=== PATIENT | female | born 1945 | race African-American/Black ===

== ENCOUNTER → 2019-01-11 | Outpatient (CLI) | payer OTHER ==
[~2019-01-11] VITALS: Ht 149.9 cm; Wt 91.2 kg
[~2019-01-11] MED LIST: ACTOS 45 MG45 M1 PO; AGGRENOX 25 MG1 EACH PO; AGGRENOX CAPSU1 EACH PO; ANTI-DIARRHEA2 MG PO; ASPIRIN EC81 M1; ASPIRIN325 PO; AZOR 10-40 MG1 EACH PO; BENICAR40 MG PO; BENZAPRIL; BETIMOL15 ML; CARVEDILOL12.5 MG PO; CITRATE OF MAG296 ML PO; COLACE 100 MG100 MG PO; COMBIVENT INH; COSOPT EYE DROPS5 ML OPHTHALMIC; CYMBALTA30 MG PO; DIPYRIDAMOLE 5050 M1; FLEXERIL PO; FLOVENT; FLOVENT HFA 2220 MC1 INH; FLOVENT HFA10.6 GM; FUROSEMIDE 40 M40 M1 PO; HUMULIN 70100 UNIT/2 SUBQ; HYDRALAZINE 10M10 MG PO; HYDROCHLOROTHIA25 M1 PO; INVOKANA100 MG PO; KEPPRA 500 MG500 M1 PO; LATANOPROST 0.2.5 ML; LOVASTAT10 PO; LOVASTAT20; LOVASTAT40 PO; NASONEX17 GM INH; NEURONTIN 300300 M1 PO; NEURONTIN 300M300 M2 PO; NEXIUM40 MG; NORCO 5-325 TA1 EACH PO; NOVOLIN 70100 UNIT/5 SQ; NOVOLOG MI100 UNIT/M; OMEPRAZOLE40 MG PO; PERCOCET 5-3251 EACH PO; PERSANTINE25 MG; TIMOLOL; TRAVATAN 0.004%5 ML; TYLENOL WITH CO1 TA1 PO; VITAMIN D 5050000 I1 PO; VITAMIN D1000 UNI1 PO; WELCHOL 625 MG625 M1; WELCHOL 625 MG625 M1 PO; WELCHOL3.75 GM PO; XALATAN2.5 ML OPHTHALMIC; ZOCOR40 MG PO; [UNRECOGNIZED DRUG - OTHER] PO
[2019-01-11 09:25] VITALS: BP 134/59
--- NOTE | 2019-01-11 09:49 | NUR ---
Pain Clinic Assessment: 1. History of Osteoarthritis: GENERALIZED History of Rheumatoid Arthritis: N 2. Height: 4 ft. 11 in. 149.9 cm. Weight: 201.0 lb. oz. 91.173 kg. Patient's BMI: 40.6 3. Vital Signs: BP: 134/59 Pulse: 71 Resp: 22 Temp: 02 Sat: 100 ECG Mon: 4. Pain Intensity: 8 5. Fall Risk: Dizziness: N Needs help standing or walking: Y Fallen in the last 3 months: Y Fall risk comments: 6. Patient on Blood Thinner: None 7. History of Hypertension: Y 8. Opioid Therapy greater than 6 weeks: N Opiate Contract Signed: 9. Risk Assessment Tool Provided: 10. Functional Assessment Tool: 58/ 11. Recreational Drug Use: Never Drug Type: Tobacco Use: Never Smoker Tobacco Type: Amount or Packs/day: How Many Years: Alcohol Use: No Frequency: Quant:
--- NOTE | 2019-01-25 08:01 | HPC ---
[facility] [place] [address] PAIN MANAGEMENT CONSULTATION Name: SHAVON WOODS Room #: REG [facility].#: [id number] Admission: 01/11/19 Attend Phys: Meng Clark DO Discharge: Date of : 41 Report #: [id number] THIS REPORT FOR: //name// CC: FAM physician/PCP Meng Cardoza MD DATE OF SERVICE: 01/11/2019 REFERRING PHYSICIAN: Eulalio Cardoza MD CHIEF COMPLAINT: Low back pain. HISTORY OF PRESENT ILLNESS: As you know, the patient is a very pleasant 73-year-old female who reports longstanding history of low back pain symptoms. She indicates pain began 11/10/2018. Denies any specific injury or trauma that may have led to symptom occurrence. She reports pain begins in low back, radiates down the leg to the right foot. She states that initially she thought she "just twisted her back. Unfortunately, her symptoms did not improve." She sought further evaluation through her primary care physician, Dr. Eulalio aCrdoza, who gave the diagnosis of low back pain, likely due from radiculopathy and trialed the patient with injections of Toradol. The patient indicates she received only transient improvement in symptoms with this injection. She was subsequently referred to our clinic for evaluation. The patient indicates today pain is continuous and constant, describes the pain as shooting, aching, sharp and stabbing. She places current pain score at 8/10, daily average at 8/10, worst pain has been 10/10. The patient states that pain is exacerbated with standing or walking for any long distances, trying to also put weight on her right leg. Pain is improved with nothing to date. She has been referred to our service to discuss treatment options for suspected lumbar radiculopathy. PAST MEDICAL HISTORY: 1. Diabetes mellitus type 2. 2. Dyslipidemia. 3. Hypertension. 4. Asthma. 5. Morbid obesity. PAST SURGICAL HISTORY: Hysterectomy. SOCIAL HISTORY: The patient denies tobacco, alcohol, IV or illicit drug use. She is retired. She retired about 8 years ago, not receiving workmen's compensation or is trying to obtain disability benefits. She is not in litigation in regards to her pain. [address] [address] PAIN MANAGEMENT CONSULTATION Name: SHAVON WOODS Room #: REG [facility]..#: [id number] Admission: 01/11/19 Attend Phys: Meng Clark DO Discharge: Date of : 41 Report #: [id number] REVIEW OF SYSTEMS: Positive for fatigue and weakness, wearing corrective eyewear, hearing loss with tinnitus, shortness of breath walking or lying flat, asthma, wheezing, constipation, frequent urination, nocturia, lightheadedness and dizziness, history of stroke, nervousness, diabetes mellitus type 2, insulin-dependent, heat and cold intolerance, chronic low back pain, right lower extremity pain with paresthesias. All other review of systems negative per 12-point review of systems other than those listed in history of present illness. Pain impact score 53/70 indicating severe interference of daily activities secondary to pain. IMAGING: No imaging available. ALLERGIES: No known drug allergies. CURRENT MEDICATIONS: Tylenol No. 3 with Codeine 1 tab every 8 hours p.r.n. for pain, duloxetine 30 mg once a day, latanoprost one drop each eye per day, timolol one drop each eye per day, fluticasone 2 sprays each nostril per day, NovoLog 70/30 sliding scale, Welchol 625 mg once a day, Aggrenox 25/200 mg twice a day, lovastatin 10 mg per day, Invokana 100 mg once a day, amlodipine/olmesartan 10/40 mg once a day, Tradjenta 5 mg once a day, vitamin D 50,000 units per week. PQRS: The patient has generalized osteoarthritis involving low back, bilateral hips, bilateral knees, bilateral ankles and bilateral hands. No rheumatoid arthritis. She is placing pain intensity at 8/10. She is a fall risk, has had a fall in last 3 months and appears to be utilizing an ambulatory device today. This does not appear to be prescribed. She is on blood thinner. She is treated for hypertension. She is not on any chronic opioids. She has a low opioid addiction potential. Pain impact score is 50/70 indicating severe interference of daily activities secondary to pain. PHYSICAL EXAMINATION: VITAL SIGNS: Blood pressure 134/59, pulse 71, respiratory rate 22 and unlabored. The patient is 100% on room air. Height 4 feet 11 inches tall, weight 201 pounds, BMI calculated 40.6. GENERAL: Well-developed, well-nourished, well-hydrated, class 3, morbidly obese 73-year-old female, appearing stated age, placing current pain score 8/10. HEENT: Normocephalic, atraumatic. Pupils equal, round, reactive to light. Extraocular muscles are intact. NEUROLOGIC: Speech fluent. The patient deemed a good historian. LUNGS: Clear. No wheeze, rhonchi or rales. CARDIOVASCULAR: Regular. No appreciable gallop, no rub. ABDOMEN: Soft, obese, normoactive bowel sounds. [address] [address] PAIN MANAGEMENT CONSULTATION Name: SHAVON WOODS Room #: REG [facility]#: [id number] Admission: 01/11/19 Attend Phys: Meng Clark DO Discharge: Date of : 41 Report #: [id number] EXTREMITIES: Show no clubbing, no cyanosis, no edema. MUSCULOSKELETAL: Lower extremity strength appears symmetrical 5/5. Slight giveaway strength noted with hip flexion, knee extension on the right when compared to left. This is due to pain generation. No muscle weakness. Seated straight leg raising positive right. Supine straight leg raising positive right. Robbin's test negative. Modified Gaenslen's positive for axial low back pain. Ankle clonus negative. Babinski is negative. Gait appears antalgic favoring right lower extremity over left. Patient is using an ambulatory cane today. Lumbar provocation testing is met with slight increase in pain. There is some palpatory tenderness over the paraspinal musculature of lower lumbar spine. ASSESSMENT: 1. Chronic low back pain. 2. Possible lumbar radiculopathy. 3. Lumbosacral spondylosis with possible radiculopathy. PLAN: 1. The patient has been referred to our service to discuss treatment options for suspected lumbar radiculopathy. The distribution of the patient's symptoms does correlate with lumbar radiculopathy and we have discussed this with the patient today. Unfortunately, the patient comes to us without any imaging studies, so I cannot direct her care completely. We can certainly talk in generalities of treatment options though; without definitive imaging, I cannot help direct the patient to the most effective treatment course. We did discuss with the patient the treatment options today. The following was discussed. We discussed physical therapy, stretching exercises and a concerted effort at weight loss. This could certainly help the patient's back pain and radicular symptoms. We discussed medication management for which the patient could initiate escalating doses of her Cymbalta as she is at a low dose and Cymbalta at high doses of 90-120 mg have shown efficacy for chronic axial back pain and lumbar radiculopathy. We discussed epidural injections under fluoroscopic guidance. We also discussed surgical options with the patient. After reviewing risks and benefits of all the proposed treatment options, the patient chose to begin with escalating doses of medication and to return to get new imaging of her lumbar spine. 2. Recommend the patient increase her Cymbalta from 30 mg dose to 60 mg dose at night. She can continue this for 7 nights. If no improvement in symptoms, no side effects to the medication, then increase to 30 mg in morning and 60 mg at night. She can continue this again for another 7 nights. If no improvement in symptoms, no side effects, then increase to 60 mg b.i.d. If the patient needs refill of medications, she can follow up with us or her primary care who initially wrote the medication. 3. The patient will need to undergo MRI of the lumbar spine for further evaluation. The patient will be returning to her PCP to have this process [address] [address] PAIN MANAGEMENT CONSULTATION Name: SHAVON WOODS Room #: REG [facility]#: [id number] Admission: 01/11/19 Attend Phys: Meng Clark DO Discharge: Date of : 41 Report #: [id number] initiated and completed. The patient does wish to discuss her case further with her PCP in regards to imaging before undergoing this process. This will be necessary for us to direct the patient's care more efficiently. 4. We will see the patient back in followup visit once she has completed her imaging study and to discuss the efficacy of the changes made in medications today. We are hopeful she will see improvement in symptoms and when she returns, we will review her MRI to discuss if interventional treatments would be necessary or moving towards more aggressive surgical procedures. 5. We wish to thank Dr. Eulalio Cardoza for the referral of the patient to our clinic. We will keep you apprised of response to treatment as we address what appears to be lumbar radicular symptoms. Again, we wish to thank you for the opportunity to see the patient in consultation. <ELECTRONICALLY SIGNED> By: Meng Clark DO 01/25/19 [id number] Meng Clark DO /nt
== END ==
LOC: PAIN 06:49
DX: M47.817 Spondylosis without myelopathy or radiculopathy, lumbosacral region (principal); E11.9 Type 2 diabetes mellitus without complications; E78.5 Hyperlipidemia, unspecified; I10 Essential (primary) hypertension; J45.909 Unspecified asthma, uncomplicated; E66.09 Other obesity due to excess calories